=== PATIENT | male | born 1980 | race Caucasian/White ===

== ENCOUNTER 2018-03-12 09:13 | Emergency (ER) | payer OTHER, SELFPAY ==
[2018-03-12 09:17] VITALS: BP 138/85; PULSE 67; RESP 14; TEMP 36.2; O2SAT 98; BMI 35.9
--- NOTE | 2018-03-12 09:18 | ED.EYEPROB ---
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 He states that he did wash his eye afterwards. States that he did have some irritation overnight and when he woke up this morning he noticed that the lower lid was swelling. Does have some blurry vision but no pain with vision. No problems with moving his eye. Has not tried anything for prior to arrival. Related Data Home Medications Medication Instructions Recorded Confirmed No Known Home Medications 03/12/18 03/12/18 Allergies Allergy/AdvReac Type Severity Reaction Status Date / Time No Known Drug Allergies Allergy Verified 03/12/18 09:19 Review of Systems Constitutional Denies fever(s) Eyes Reports blurry vision, Reports change in vision, Denies diplopia, Reports irritation (Left), Denies itchy eyes, Denies eye pain, Denies photophobia, Denies spots in vision and Denies tunnel vision ENT Ears, Nose, Mouth, and Throat: Denies dental pain, Denies dysphagia, Denies vertigo, Denies sinus pressure and Denies sore throat Cardiovascular Denies chest pain and Denies dyspnea Respiratory Denies dyspnea Gastrointestinal Gastrointestinal: Denies abdominal pain, Denies dysphagia, Denies nausea and Denies vomiting Integumentary/Breasts Denies lesions and Denies rash Neurologic Denies vertigo Allergic/Immunologic Denies itchy eyes [facility] Medical History Healthy adult (Acute) Surgical History No pertinent past surgical history (Acute) Social History Smoking Status: Former smoker Exam Initial Vital Signs Initial Vital Signs: Vital Signs Temperature 97.1 F L 03/12/18 09:17 Pulse Rate 67 03/12/18 09:17 Respiratory Rate 14 03/12/18 09:17 Blood Pressure 138/85 03/12/18 09:17 Pulse Oximetry 98 03/12/18 09:17 Const General: cooperative, healthy appearing, comfortable, well developed, well groomed and No acute distress Orientation: alert, awake and oriented x3 HENMT Head: normal to inspection, normocephalic and atraumatic Ears: TM's normal bilaterally Nose: external nose normal Face and sinus: normal facial exam Eyes Pupils: PERRL EOM: EOM intact bilaterally Other: No foreign bodies noted with eversion of the upper and lower eyelid left eye. PH of 7 in the left eye. No uptake with fluorescein staining of the left eye. Patient does have some swelling and irritation and chemosis of the left lower eyelid. Resp Effort & Inspection: normal respiratory effort Skin Lesions: no lesions Rashes: no rashes Neuro General: alert, awake and oriented x3 Psych Appearance: grossly normal and well kempt Course Vital Signs - 8 hr 03/12/18 09:17 Temperature 97.1 F L Pulse Rate 67 Respiratory Rate 14 Blood Pressure 138/85 Pulse Oximetry 98 MDM - Eye Problem MDM Narrative Medical decision making narrative: No foreign bodies noted. No ulcerations or abrasions noted with fluorescein. PH is 7. Does have chemosis left lower eyelid. Patient is 24 hr out from the event. Does not wear contacts. Discussed all this with the patient. Will hold on further workup for now. No indication for antibiotics. We did discuss actions that he can do such as cool compresses. He was given return precautions. He expressed understanding and agreement with plan. Discharge Plan Departure Patient Disposition: Home Clinical Impression: Chemosis of left conjunctiva Instructions: DI for Chemical Eye Burn Activity Restrictions/Additional Instructions: Keep cool compresses on the eye like we discussed. Return to the emergency department for any new or worsening symptoms Prescriptions: No Action No Known Home Medications RF: 0
== END 2018-03-12 09:52 | disposition home or self-care (01) ==
PROVIDERS: Emergency Provider Emergency Medicine
DX: H11.422 Conjunctival edema, left eye (principal); Y99.0 Civilian activity done for income or pay
CPT/HCPCS: 99282; 99283